=== PATIENT | female | born 1980 | race African-American/Black ===

== ENCOUNTER 2024-07-23 15:11 | Emergency (ER) | payer BC, SELFPAY ==
--- NOTE | ~2024-07-23 | US_ITS ---
EXAMINATION: US RETROPERITONEAL LIMITED, RIGHT (RENAL ONLY) CLINICAL INFORMATION: Questionable nephrolithiasis. COMPARISON: None available. TECHNIQUE: Real-time imaging of the kidneys FINDINGS: RIGHT KIDNEY: 9.4 x 3.3 x 4.8 cm (SAG x AP x TRV). The kidney is normal in size, contour, and echogenicity. Renal cortical thickness is normal. No focal parenchymal lesions. There is nonobstructing 0.3 x 0.4 x 0.2 cm calculus seen in the lower pole. No hydronephrosis. Left kidney and urinary bladder are not shown US/US renal RT IMPRESSION: Nephrolithiasis without hydronephrosis on the right. Electronically signed by: Aure Charlton MD 07/23/2024 06:39 PM [facility]
--- NOTE | 2024-07-23 15:13 | ED.GENADULT ---
HPI - General Adult General Chief complaint: Abdominal Pain Stated complaint: Kidney pain/Vomiting Time Seen by Provider: 07/23/24 16:01 Source: patient Mode of arrival: ambulatory Limitations: no limitations History of Present Illness ED Provider: Gisela Zelaya NP HPI narrative: Patient is a 44 year old female with past medical history of kidney stones who presents emergency department for evaluation. She states that she has been experiencing right-sided flank/abdominal pain for about 1.5 weeks. She states that she went to [facility] 1 week ago and she had CT of her abdomen and pelvis as well as a pelvic ultrasound obtained. She provides me with the radiologist impression from her portal. There is evidence of right hydronephrosis but no visualized nephrolithiasis or ureteral calculi, the distal ureter however was not well visualized, and the presence of pelvic phleboliths. She states that her pain has persisted. This morning she had an episode of vomiting and a low-grade temperature of 99.5 degrees, she also states that since arrival to the today she has been experiencing some dysuria. Denies chills, chest pain, hematemesis, diarrhea, constipation, hematochezia, melena, urinary frequency, urinary urgency, urinary hesitancy, hematuria. denies pelvic pain or abnormal vaginal discharge. Denies concern for sexually transmitted infection. Denies concern for . Related Data Allergies Allergy/AdvReac Type Severity Reaction Status Date / Time No Known Allergies Allergy Verified 07/23/24 15:16 Review of Systems Review of Systems: Yes all other systems are reviewed and are negative PMFSH Past Medical History Attestation statement: The following information was validated with the patient. Source: old records reviewed Social History Social History Smoked in Last 30 Days: No Use of substances other than those prescribed or required for medical reasons: No Advance Directives: No Advance Directives Information Provided: No Patient : No Physical Exam ED Vital Signs: Vital Signs - 24 hr 07/23/24 15:15 Temperature 97.5 F Pulse Rate 108 H Respiratory Rate 16 Blood Pressure 119/73 Pulse Oximetry 99 Oxygen Delivery Method Room Air BMI result Body Mass Index 31.0 Appearance: Alert.?Oriented to person, place and time. No acute distress.?Normal affect.?? Neck: Normal inspection.? Neck supple.?? CVS: Heart sounds normal. Normal heart rate and rhythm.? Pulses normal.?? Respiratory: No respiratory distress.? Lung sounds clear to auscultation bilaterally?? Abdomen: Soft and non-tender. No rebound tenderness at McBurney's point. Negative psoas sign. Negative Rovsing sign. Negative Rose sign. No CVAT. Normoactive bowel sounds. No pulsatile mass.?? Skin: Skin warm and dry.? Normal skin color.? Extremities: No lower extremity edema.? Neuro: Moves all extremities spontaneously. Sensation intact bilaterally. Ambulates with normal steady gait. Course Course Course Narrative: This is an RME: Additional HPI, ROS, PE not included below will be deferred to primary provider. RME assessment and note performed by: Nneka Hill PA-C This is a [id number], with no known medical problems, who presents to the ER with complaints of right sided flank pain x 1 week. Went to [facility] where they did a CT scan with contrast and was told that she had hydronephrosis and was discharged home. She presented with the CT scan results on her phone, it appears as though she does have kidney stones however the distal ureter was not well visualized on this particular study. States today she has had vomiting and a fever of 99.5. Reports pain is in her right flank. No blood in the urine. Plan: Labs, UA, further ER evaluation needed. Reevaluation(s) Reevaluation #1: Ultrasound reveal nephrolithiasis without hydronephrosis on the right. These findings were discussed with patient. I encouraged outpatient follow-up with Urology as she was previously advised by Taniya, she is not certain whether urology will be contacting her or if she is to contact your office. I did provide her with contact information/referral to our urology department should she wish to utilize this. Discussed strict return precautions. Tolerating oral intake. At this time stable for discharge. Medications Administered Discontinued Medications Generic Name Dose Route Start Last Admin Trade Name Freq PRN Reason Stop Dose Admin Ketorolac Tromethamine 15 mg 07/23/24 16:47 07/23/24 17:05 Ketorolac Tromethamine 15 Mg/Ml Vial IVPUSH 07/23/24 16:48 15 mg ONCE ONE Administration Ondansetron HCl 4 mg 07/23/24 16:47 07/23/24 17:05 Ondansetron Hcl 4 Mg/2 Ml Vial IVPUSH 07/23/24 16:48 4 mg ONCE ONE Administration Medical Decision Making Medical Decision Making [facility] Narrative: Patient is a 44-year-old female past medical history of nephrolithiasis presenting to emergency department for evaluation of persistent right flank/abdominal pain as per HPI in the setting of recently diagnosed hydronephrosis but no evidence of calculi although the distal ureter was not well visualized. As per HPI pain has continued, this morning she had vomiting and a low-grade fever, and since arriving to the emergency department she does endorse having dysuria. Evaluation of her serum labs she has a mild leukocytosis with left shift, no anemia or thrombocytopenia. No electrolyte derangement. No WALT. LFTs and lipase unremarkable. HCG is negative, hep B consistent with ectopic . Denies concern for sexually transmitted infections or pelvic pain, lower suspicion for TOA/torsion, normal pelvic ultrasound 1 week ago without evidence of ovarian cysts. On abdominal evaluation, she does have mild diffuse right abdominal tenderness, negative Rose sign, no rebound tenderness at McBurney's point no rigidity or guarding. Mild right CVAT. LS CTA, no URI symptoms to suggest pneumonia. We will trial Zofran for nausea, ketorolac for pain, obtaining urinalysis to evaluate for infection. We did discuss the possibility of renal colic as etiology for pain given the presence of hydronephrosis, possibly a recently passed stone. Differential Diagnosis Differential Diagnoses: The differential diagnosis associated with the presentation includes (See narrative above) Admission/Observation Consideration of admission/observation: Escalation of care including admission/observation considered (See narrative above ) Lab Data MDM Lab Attestation statement: I reviewed the patient's lab results. 07/23/24 15:30 07/23/24 15:30 Labs: Lab Results 07/23/24 07/23/24 Range/Units 15:30 16:39 WBC 11.6 H (4.8-10.8) X10*3/uL RBC 4.28 (4.20-5.50) X10*6/uL Hgb 13.0 (12.0-16.0) g/dl Hct 38.0 (37.0-47.0) % MCV 88.8 (80.0-98.0) fL MCH 30.4 (27.0-33.0) pg MCHC 34.2 (31.0-35.0) g/dl RDW 13.8 (11.0-16.0) % Plt Count 287 (160-400) X10*3/uL MPV 9.9 (9.4-12.3) fL Immature Gran % (Auto) 0.3 (0.0-0.4) % Neut % (Auto) 89.2 H (45-73) % Lymph % (Auto) 7.0 L (20-40) % [place] % (Auto) 3.2 (2-11) % Eos % (Auto) 0.1 (0-4) % Baso % (Auto) 0.2 (0-2) % Lymph # (Auto) 0.8 L (1.2-4.9) X10*3/uL [place] # (Auto) 0.4 (0.1-1.2) X10*3/uL Eos # (Auto) 0.0 (0.0-0.4) X10*3/uL Baso # (Auto) 0.0 (0.0-0.2) X10*3/uL Abs Immat Gran (auto) 0.04 H (0.00-0.03) X10*3/uL Absolute Neuts (auto) 10.4 H (2.0-8.3) x10*3/uL Absolute Nucleated RBC 0.000 (0.0-0.012) X10*3/uL Nucleated RBC % (auto) 0.0 (0.0-0.2) /100WBC Sodium 138 (135-145) mmol/L Potassium 4.0 (3.3-5.1) mmol/L Chloride 107 (96-108) mmol/L Carbon Dioxide 24 (22-29) mmol/L Anion Gap 11 L (12-20) BUN 13 (9-16) mg/dL Creatinine 0.84 (0.5-1.4) mg/dL Estim Creat Clear Calc 83.5 Estimated GFR > 60 Random Glucose 99 (60-115) mg/dL Calcium 9.2 (8.4-10.2) mg/dL Total Bilirubin 0.7 (0.0-1.0) mg/dL Direct Bilirubin 0.2 (0.0-0.5) mg/dL AST 23 (5-31) U/L ALT 23 (0-31) U/L Alkaline Phosphatase 57 (39-117) U/L Total Protein 7.3 (6.5-8.0) g/dL Albumin 4.4 (3.5-5.0) g/dL Lipase 11 (8-78) U/L Beta HCG, Quant < 2 mIU/mL Urine Color Yellow Urine Appearance Clear Urine pH 7.5 (5.0-9.0) Ur Specific [place] 1.020 (1.005-1.025) Urine Protein Negative (Neg-Trace) mg/dL Urine Glucose (UA) Negative (Negative) mg/dL Urine Ketones Negative (Negative) mg/dL Urine Blood Negative (Negative) Urine Nitrite Negative (Negative) Ur Leukocyte Esterase Negative (Negative) Radiology Impression Discussion of test interpretation with radiology: I have reviewed the radiologist's reading. Radiologist Impression: US/US renal RT IMPRESSION: Nephrolithiasis without hydronephrosis on the right. Independent Historian Clinical information obtained from an independent historian. History obtained from or confirmed by: Spouse External Record Review External record reviewed: Outpatient record and Prior outpatient radiology Prescription Management I considered prescription management with: Pain Medication and Antibiotic Chronic Conditions Patient?s care impacted by: Other (See narrative above) Discharge Plan Discharge Clinical Impression: Flank pain Patient Disposition: Home, Self-Care Instructions: Flank Pain (ED) Additional Instructions: Ultrasound imaging today reveals a small stone in the lower portion of your right kidney, typically stones in this area do not result in pain, stones that become painful or when they are passing through the ureter. As discussed you can have pain due to inflammation from recently passed stones/renal colic. Your blood work today including kidney function are normal. Your urine test does not show evidence of infection. I do think that you would benefit from follow-up with urology as discussed. I am not certain what the referral process is for [facility], if you will need to contact an office or in office should contact you. In the event that you were interested in following up with Urology at [facility] I provided their contact information for you. You can take ibuprofen 200 mg, 3 tablets (600mg) every 6-8 hours as needed for pain, in addition to Tylenol 500 mg, 2 tablets (1,000mg) every 4-6 hours as needed for pain, but not to exceed 3 doses daily (3,000mg).? Referrals: [facility] [Provider Group] Print Language: Romanian
[2024-07-23 15:15] VITALS: BP 119/73; PULSE 108; RESP 16; TEMP 36.4; O2SAT 99; BMI 31.0
[2024-07-23 15:34] LABS: MANUAL DIFF FLAG NO
[2024-07-23 15:41] LABS: Basophils Percent Auto 0.2 % (0-2); Eosinophils Percent Auto 0.1 % (0-4); Imm Gran Abs Auto 0.04 X10*3/uL (0.00-0.03); Imm Gran Pct Auto 0.3 % (0.0-0.4); Lymphocytes Absolute Auto 0.8 X10*3/uL (1.2-4.9); Mean Corpuscular HGB Conc 34.2 g/dl (31.0-35.0); Mean Corpuscular Hemoglobin 30.4 pg (27.0-33.0); Mean Corpuscular Volume 88.8 fL (80.0-98.0); Mean Platelet Volume 9.9 fL (9.4-12.3); Monocytes Absolute Auto 0.4 X10*3/uL (0.1-1.2); Monocytes Percent Auto 3.2 % (2-11); Neutrophils Absolute Auto 10.4 x10*3/uL (2.0-8.3); Neutrophils Percent Auto 89.2 % (45-73); Platelet Count 287 X10*3/uL (160-400); Red Blood Count 4.28 X10*6/uL (4.20-5.50); Red Cell Distribution Width 13.8 % (11.0-16.0); White Blood Count 11.6 X10*3/uL (4.8-10.8)
[2024-07-23 16:00] LABS: Alanine Aminotransferase 23 U/L (0-31); Albumin Level 4.4 g/dL (3.5-5.0); Alkaline Phosphatase 57 U/L (39-117); Anion Gap 11 (12-20); Aspartate Amino Transferase 23 U/L (5-31); Bilirubin Direct 0.2 mg/dL (0.0-0.5); Bilirubin Total 0.7 mg/dL (0.0-1.0); Blood Urea Nitrogen 13 mg/dL (9-16); Calcium 9.2 mg/dL (8.4-10.2); Carbon Dioxide 24 mmol/L (22-29); Chloride 107 mmol/L (96-108); Creatinine Clr Calc Pharmacy 83.5; Estimated Glomerular Filt Rate > 60; Glucose Random 99 mg/dL (60-115); Lipase 11 U/L (8-78); Sodium 138 mmol/L (135-145); Total Protein 7.3 g/dL (6.5-8.0)
[2024-07-23 16:07] LABS: HCG Quantitative < 2 mIU/mL
[2024-07-23 16:51] LABS: Appearance Urine Clear; Color Urine Yellow; Glucose Urine UA Negative (Negative); Leukocyte Esterase Urine Negative (Negative); Nitrite Urine Negative (Negative); PH 7.5 (5.0-9.0); Urine Blood Negative (Negative); Urine Ketones Negative (Negative); Urine Protein Negative (Neg-Trace)
[2024-07-23] MEDS: Ketorolac Tromethamine 15 MG/ML VIAL IVPUSH (17:05)
[2024-07-23] MEDS: ondansetron HCL 4 MG/2 ML VIAL IVPUSH (17:05)
[2024-07-23 18:55] VITALS: BP 109/66; PULSE 96; RESP 18; TEMP 36.9; O2SAT 98
[2024-07-23 19:28] VITALS: BP 109/68; PULSE 93; RESP 16; TEMP 36.8; O2SAT 99
== END 2024-07-23 19:29 | disposition home or self-care (01) ==
PROVIDERS: Physician Assistant Medical; Emergency Provider Emergency Medicine
DX: R10.2 Pelvic and perineal pain (principal); N13.30 Unspecified hydronephrosis; R11.0 Nausea; Z79.899 Other long term (current) drug therapy; Z87.442 Personal history of urinary calculi
CPT/HCPCS: 36415; 76775; 80048; 80076; 81003; 83690; 84702; 85025; 96374; 96375; 99284; J1885; J2405